=== PATIENT | female | born 1995 | race Caucasian/White ===

== ENCOUNTER 2018-09-12 05:24 | Emergency (ER) | payer OTHER ==
[~2018-09-12] VITALS: Ht 167.6 cm; Wt 72.1 kg
[2018-09-12 05:29] VITALS: Ht 167.6 cm; Wt 72.1 kg
[2018-09-12 05:50] LABS: BASOPHIL % 1.9 % (0-2); PLATELET COUNT 257 x10^3mcL (130-400); RED CELL DISTRIBUTION WIDTH 13.6 % (11.5-14.5)
[2018-09-12 05:54] LABS: CARBON DIOXIDE 18.2 mmol/L (21-32); CHLORIDE SERUM 102 mmol/L (98-107); CREATININE SERUM 0.7 mg/dL (0.6-1.0); GFR1 > 60 mL/min; GLUCOSE SERUM 114 mg/dL (74-106); POTASSIUM SERUM 3.3 mmol/L (3.5-5.1); SODIUM SERUM 134 mmol/L (136-145)
[2018-09-12 06:20] LABS: ALBUMIN 4.2 g/dL (3.4-5.0); BILIRUBIN DIRECT 0.17 mg/dL (0.0-0.2); BILIRUBIN TOTAL 0.75 mg/dL (0.20-1.00); TOTAL PROTEIN, SERUM 7.5 g/dL (6.4-8.2)
[2018-09-12 06:38] LABS: microscopic required? YES; urine erythrocyte TRACE (NEGATIVE)
[2018-09-12 08:41] VITALS: BP 120/59
== END 2018-09-12 08:41 | disposition home or self-care (01) ==
LOC: ED 05:24
PROVIDERS: Emergency Medicine
DX: B34.9 Viral infection, unspecified (principal); R10.9 Unspecified abdominal pain; E87.6 Hypokalemia
CPT/HCPCS: 87804; J1885; J2405; J3010; J7030; Q0092

== ENCOUNTER 2018-10-06 22:17 | Emergency (ER) | payer OTHER ==
[~2018-10-06] VITALS: Ht 165.1 cm; Wt 71.2 kg
[2018-10-06 22:40] VITALS: Ht 165.1 cm; Wt 71.2 kg
[2018-10-07 00:56] VITALS: BP 134/85
== END 2018-10-07 00:56 | disposition home or self-care (01) ==
LOC: ED 22:17
DX: S13.9XXA Sprain of joints and ligaments of unspecified parts of neck, initial encounter (principal); X58.XXXA Exposure to other specified factors, initial encounter; Y93.89 Activity, other specified; Y92.89 Other specified places as the place of occurrence of the external cause; Y99.8 Other external cause status
CPT/HCPCS: J1885

== ENCOUNTER 2019-08-22 22:22 | Emergency (ER) | payer OTHER ==
[~2019-08-22] VITALS: Ht 165.1 cm; Wt 52.6 kg
[2019-08-22 22:27] VITALS: Ht 165.1 cm; Wt 52.6 kg
[2019-08-22 23:28] LABS: BASOPHIL % 0.3 % (0-2); PLATELET COUNT 249 x10^3mcL (130-400); RED CELL DISTRIBUTION WIDTH 14.8 % (11.5-14.5)
[2019-08-22 23:29] LABS: CALCIUM 8.7 mg/dL (8.5-10.1); CARBON DIOXIDE 26.6 mmol/L (21-32); CHLORIDE SERUM 103 mmol/L (98-107); CREATININE SERUM 0.7 mg/dL (0.6-1.0); GFR1 > 60 mL/min; GLUCOSE SERUM 89 mg/dL (74-106); POTASSIUM SERUM 3.7 mmol/L (3.5-5.1); SODIUM SERUM 140 mmol/L (136-145)
[2019-08-22 23:34] LABS: ALKALINE PHOSPHATASE 78 U/L (46-116); ALT/SGPT 33 U/L (14-59); AST/SGOT 12 U/L (15-37); BILIRUBIN TOTAL 0.43 mg/dL (0.20-1.00); TOTAL PROTEIN, SERUM 7.6 g/dL (6.4-8.2)
[2019-08-23 00:53] VITALS: BP 114/76
== END 2019-08-23 01:04 | disposition home or self-care (01) ==
LOC: ED 22:22
PROVIDERS: Emergency Medicine
DX: B34.9 Viral infection, unspecified (principal); R55 Syncope and collapse; Z98.890 Other specified postprocedural states
CPT/HCPCS: 36415; 87804

== ENCOUNTER 2020-07-14 16:21 | Emergency (ER) | payer OTHER ==
[~2020-07-14] VITALS: Ht 165.1 cm; Wt 73.5 kg
[2020-07-14 16:51] VITALS: Ht 165.1 cm; Wt 73.5 kg
[2020-07-14 17:30] LABS: microscopic required? NO
[2020-07-14 17:59] LABS: UA SPECIFIC GRAVITY >=1.030 (1.005-1.035); urine erythrocyte NEGATIVE (NEGATIVE)
[2020-07-14 18:40] VITALS: BP 111/69
== END 2020-07-14 18:41 | disposition home or self-care (01) ==
LOC: ED 16:21
PROVIDERS: Emergency Medicine
DX: N39.0 Urinary tract infection, site not specified (principal); Z98.890 Other specified postprocedural states
CPT/HCPCS: J1885